=== PATIENT | female | born 1995 | race Hispanic/Latino ===

== ENCOUNTER → 2017-11-12 | Outpatient (CLI) | payer OTHER ==
[~2017-11-12] MED LIST: IBUP-2071 PO; TYL3 PO
== END ==
LOC: RAH 11:06
PROVIDERS: ATTEND Family Medicine
DX: R10.2 Pelvic and perineal pain (principal)
CPT/HCPCS: 76856

== ENCOUNTER 2017-11-20 09:26 | Day surgery (SDC) | payer OTHER ==
[2017-11-19 13:36] VITALS: BP 114/67
[2017-11-19 13:36] LABS: BASOPHILS % (AUTO) 0.7 % (0.0-5.0); EOSINOPHILS % (AUTO) 1.3 % (0.0-8.0); HEMATOCRIT 38.6 % (36-48); LYMPHOCYTES % (AUTO) 34.3 % (21.0-51.0); MEAN CORPUSCULAR HEMOGLOBIN 31.3 pg (27.0-33.0); MEAN CORPUSCULAR HGB CONC 36.1 g/dL (32.0-36.0); MEAN CORPUSCULAR VOLUME 86.6 fL (80-100); MONOCYTES % (AUTO) 6.9 % (3.0-13.0); NEUTROPHILS % (AUTO) 56.8 % (40.0-77.0); PLATELET COUNT (AUTO) 214 K/uL (130-400); RED BLOOD CELL COUNT(AUTO) 4.45 MIL/uL (4.00-5.50); RED CELL DISTRIBUTION WIDTH 12.3 % (11.0-15.5); WHITE BLOOD COUNT (AUTO) 4.7 K/uL (4.8-10.8)
[2017-11-20] VITALS (18 sets, daily range): BP systolic 96–114; BP diastolic 52–71
[~2017-11-20] VITALS: Ht 167.6 cm; Wt 56.0 kg
[~2017-11-20 09:26] MED LIST changes: +BUPIVACAINE/PF 0.25% 30ML VIAL IJ ONE; -IBUP-2071 PO; -TYL3 PO
[2017-11-20] MEDS ORDERED: LACTATED RINGERS 1000ML 1,000 ML IV ONE (10:44)
[2017-11-20] MEDS ORDERED: CALDOLOR 800MG+NS 250ML 250 ML IV ONE (10:53)
[2017-11-20] MEDS ORDERED: TYL3 PO (11:02)
[2017-11-20] MEDS: CEFAZOLIN SODIUM 1 GM VIAL ONE ×2 (11:03→12:45)
[2017-11-20] MEDS ORDERED: MIDAZOLAM HCL 1 MG/ML 2ML VIAL ONE ×2 (12:42→12:43)
[2017-11-20] MEDS ORDERED: GLYCOPYRROLATE 0.2 MG/ML 5 ML VIAL ONE (12:43)
[2017-11-20] MEDS ORDERED: FENTANYL CITRATE PF 50 MCG/1 ML 2ML VIAL ONE ×2 (12:43→12:53)
[2017-11-20] MEDS ORDERED: PROPOFOL 10 MG/ML 20ML VIAL IV ONE (12:43)
[2017-11-20] MEDS ORDERED: LIDOCAINE PF 2% 5ML ABBOJECT ONE (12:43)
[2017-11-20] MEDS ORDERED: DEXAMETHASONE SOD PHOSPHATE 10MG/ML 1ML VIAL ONE (12:43)
[2017-11-20] MEDS ORDERED: OCTYL 2-CYANOACRYLATE 1 EACH TP ONE (14:24)
[2017-11-20] MEDS ORDERED: MEPERIDINE-PF 25 MG/ML SYG ONE (14:56)
[2017-11-20] MEDS ORDERED: ONDANSETRON HCL MDV 20ML 2 MG/ML VIAL ONE (15:07)
== END 2017-11-20 17:30 | disposition home or self-care (01) ==
LOC: DAH 09:26
PROVIDERS: ATTEND Obstetrics & Gynecology
DX: N73.6 Female pelvic peritoneal adhesions (postinfective) (principal); G89.29 Other chronic pain; Z79.899 Other long term (current) drug therapy; Z98.890 Other specified postprocedural states
CPT/HCPCS: 36415; 58660; 84703; 85025; 86850; 86900; 86901; A4215; A4218; A4344; A4649 ×2; A4930; C1765; C1769 ×2; G0168; J0690; J1100; J1741; J2001; J2175; J2250 ×2; J2704; J3010 ×2; J3490 ×2; J7030; J7120 ×2

== ENCOUNTER 2018-02-06 10:55 | Emergency (ER) | payer OTHER ==
[~2018-02-06 10:55] MED LIST changes: -BUPIVACAINE/PF 0.25% 30ML VIAL IJ ONE; +TYL3 PO
[2018-02-06] MEDS ORDERED: KETOROLAC TROMETHAMINE 30MG/ML ONE (11:31)
[2018-02-06 11:33] LABS: BASOPHILS % (AUTO) 0.8 % (0.0-5.0); EOSINOPHILS % (AUTO) 1.1 % (0.0-8.0); HEMATOCRIT 39.8 % (36-48); LYMPHOCYTES % (AUTO) 33.2 % (21.0-51.0); MEAN CORPUSCULAR HGB CONC 35.8 g/dL (32.0-36.0); MEAN CORPUSCULAR VOLUME 86.6 fL (80-100); MONOCYTES % (AUTO) 7.4 % (3.0-13.0); NEUTROPHILS % (AUTO) 57.5 % (40.0-77.0); PLATELET COUNT (AUTO) 203 K/uL (130-400); RED CELL DISTRIBUTION WIDTH 12.4 % (11.0-15.5); WHITE BLOOD COUNT (AUTO) 5.8 K/uL (4.8-10.8)
[2018-02-06 11:44] LABS: CREATININE 0.7 mg/dL (0.5-1.5); POTASSIUM 3.8 mmol/L (3.5-5.1)
[2018-02-06 11:49] LABS: BILIRUBIN,TOTAL 0.3 mg/dL (0.2-1.0); TOTAL PROTEIN, SERUM 7.1 g/dL (6.0-8.3)
[2018-02-06 11:57] LABS: APPEARANCE,URINE Clear (CLEAR); BILIRUBIN,URINE Negative (NEGATIVE); COLOR,URINE Yellow (YELLOW); GLUCOSE, URINE (UA) Negative (NEGATIVE); KETONES,URINE Negative (NEGATIVE); LEUKOCYTE ESTERASE ,URINE Large (NEGATIVE); NITRATE,URINE Negative (NEGATIVE); OCCULT BLOOD,URINE Nonhemolyzed Trace (NEGATIVE); PH,URINE 7.5 (5.0-8.0); PROTEIN,URINE Negative (NEGATIVE)
[2018-02-06 12:02] LABS: HCG,QUAL RESULT NEGATIVE (NEGATIVE)
[2018-02-06 12:14] LABS: AMPHET/METH SCREEN,URINE NEGATIVE (NEGATIVE); BARBITURATE SCREEN, URINE NEGATIVE (NEGATIVE); BENZODIAZEPINES SCREEN,URINE NEGATIVE (NEGATIVE); CANNABINOID SCREEN,URINE NEGATIVE (NEGATIVE); COCAINE SCREEN,URINE NEGATIVE (NEGATIVE); OPIATE SCREEN,URINE NEGATIVE (NEGATIVE); PHENCYCLIDINE SCREEN,URINE NEGATIVE (NEGATIVE)
[2018-02-06 12:19] LABS: AMORPHOUS SEDIMENT,UR Few /LPF (None Seen); BACTERIA,URINE Moderate /HPF (None Seen); SQUAMOUS EPITHELIAL CELL,UR 0-2 /HPF (0-2)
[2018-02-06 12:20] LABS: RBC,URINE 0-1 /HPF (0-1)
[2018-02-06] MEDS ORDERED: CEFTRIAXONE SODIUM 1 GM ONE (12:50)
== END 2018-02-06 13:31 | disposition home or self-care (01) ==
LOC: EDH 10:55
DX: N30.00 Acute cystitis without hematuria (principal); G43.909 Migraine, unspecified, not intractable, without status migrainosus
CPT/HCPCS: 36415; 76830; 80053; 80305; 81001; 81025; 85025; 87088; 87486; 87797; 96374; 96375; 99285; J0696; J1885

== ENCOUNTER → 2018-06-04 | Outpatient (CLI) | payer OTHER ==
[2018-06-04 12:39] LABS: BASOPHILS % (AUTO) 0.8 % (0.0-5.0); EOSINOPHILS % (AUTO) 0.7 % (0.0-8.0); HEMATOCRIT 39.9 % (36-48); LYMPHOCYTES % (AUTO) 36.3 % (21.0-51.0); MEAN CORPUSCULAR HEMOGLOBIN 30.4 pg (27.0-33.0); MEAN CORPUSCULAR HGB CONC 34.8 g/dL (32.0-36.0); MEAN CORPUSCULAR VOLUME 87.4 fL (80-100); MONOCYTES % (AUTO) 6.3 % (3.0-13.0); NEUTROPHILS % (AUTO) 55.9 % (40.0-77.0); PLATELET COUNT (AUTO) 213 K/uL (130-400); RED BLOOD CELL COUNT(AUTO) 4.57 MIL/uL (4.00-5.50); RED CELL DISTRIBUTION WIDTH 12.1 % (11.0-15.5); WHITE BLOOD COUNT (AUTO) 4.5 K/uL (4.8-10.8)
[2018-06-04 13:00] LABS: ALBUMIN 4.4 g/dL (3.5-5.0); BILIRUBIN,TOTAL 0.5 mg/dL (0.2-1.0); CREATININE 0.8 mg/dL (0.5-1.5); POTASSIUM 5.4 mmol/L (3.5-5.1); THYROID STIMULATING HORMONE 2.12 uIU/mL (0.36-3.74); TOTAL PROTEIN, SERUM 7.8 g/dL (6.0-8.3)
== END | disposition home or self-care (01) ==
LOC: LAB 11:35
PROVIDERS: ATTEND Family Medicine
DX: I10 Essential (primary) hypertension (principal); R07.9 Chest pain, unspecified
CPT/HCPCS: 36415; 80053; 80061; 84443; 85025

== ENCOUNTER 2018-07-03 07:08 | Emergency (ER) | payer OTHER ==
[2018-07-03] MEDS ORDERED: PEN G BENZ/PEN G PROCAINE 1,200,000 UNIT/2 ML ML IM ONE (08:50)
== END 2018-07-03 09:07 | disposition home or self-care (01) ==
LOC: EDH 07:08
DX: J02.9 Acute pharyngitis, unspecified (principal); G43.909 Migraine, unspecified, not intractable, without status migrainosus; Z79.3 Long term (current) use of hormonal contraceptives; Z98.890 Other specified postprocedural states
CPT/HCPCS: 87880; 96372; 99283; J0558

== ENCOUNTER 2018-08-12 22:01 | Emergency (ER) | payer OTHER ==
[2018-08-12 22:31] LABS: BASOPHILS % (AUTO) 0.6 % (0.0-5.0); HEMATOCRIT 38.4 % (36-48); LYMPHOCYTES % (AUTO) 34.9 % (21.0-51.0); MEAN CORPUSCULAR HEMOGLOBIN 29.4 pg (27.0-33.0); MEAN CORPUSCULAR HGB CONC 33.9 g/dL (32.0-36.0); MEAN CORPUSCULAR VOLUME 86.7 fL (80-100); MONOCYTES % (AUTO) 7.5 % (3.0-13.0); NUCLEATED RED BLOOD CELLS 0.1 % (0.0-0.19); PLATELET COUNT (AUTO) 158 K/uL (130-400); RED BLOOD CELL COUNT(AUTO) 4.42 MIL/uL (4.00-5.50); RED CELL DISTRIBUTION WIDTH 11.9 % (11.0-15.5)
[2018-08-12 22:32] LABS: APPEARANCE,URINE Cloudy (CLEAR); BILIRUBIN,URINE Negative (NEGATIVE); COLOR,URINE Yellow (YELLOW); GLUCOSE, URINE (UA) Negative (NEGATIVE); KETONES,URINE Negative (NEGATIVE); LEUKOCYTE ESTERASE ,URINE Trace (NEGATIVE); NITRATE,URINE Negative (NEGATIVE); OCCULT BLOOD,URINE Negative (NEGATIVE); PH,URINE 7.5 (5.0-8.0); PROTEIN,URINE Negative (NEGATIVE)
[2018-08-12 22:38] LABS: HCG,QUAL RESULT NEGATIVE (NEGATIVE)
[2018-08-12 22:42] LABS: CREATININE 0.6 mg/dL (0.5-1.5); POTASSIUM 3.7 mmol/L (3.5-5.1)
[2018-08-12 22:47] LABS: ALBUMIN 3.6 g/dL (3.5-5.0); BILIRUBIN,TOTAL 0.2 mg/dL (0.2-1.0); TOTAL PROTEIN, SERUM 6.6 g/dL (6.0-8.3)
[2018-08-12 22:47] LABS: BACTERIA,URINE Rare /HPF (None Seen); MUCUS,URINE Few LPF (None Seen); RBC,URINE None Seen /HPF (0-1); SQUAMOUS EPITHELIAL CELL,UR Moderate /HPF (0-2); WBC,URINE 0-1 /HPF (0-1)
[2018-08-12] MEDS ORDERED: KETOROLAC TROMETHAMINE 30MG/ML ONE (22:55)
[2018-08-13] MEDS ORDERED: TRAMADOL HCL 50 MG TABLET ONE (00:56)
== END 2018-08-13 01:27 | disposition home or self-care (01) ==
LOC: EDH 22:01
DX: N83.291 Other ovarian cyst, right side (principal); R10.2 Pelvic and perineal pain
CPT/HCPCS: 36415; 76830; 80053; 81001; 81025; 85025; 96374; 99284; J1885

== ENCOUNTER 2018-08-13 12:32 | Emergency (ER) | payer OTHER ==
[2018-08-13 14:32] LABS: APPEARANCE,URINE Cloudy (CLEAR); BILIRUBIN,URINE Negative (NEGATIVE); COLOR,URINE Yellow (YELLOW); GLUCOSE, URINE (UA) Negative (NEGATIVE); KETONES,URINE Negative (NEGATIVE); LEUKOCYTE ESTERASE ,URINE Negative (NEGATIVE); NITRATE,URINE Negative (NEGATIVE); OCCULT BLOOD,URINE Negative (NEGATIVE); PROTEIN,URINE Negative (NEGATIVE)
[2018-08-13 14:35] LABS: HCG,QUAL RESULT NEGATIVE (NEGATIVE)
[2018-08-13 14:46] LABS: BACTERIA,URINE Few /HPF (None Seen); MUCUS,URINE Moderate LPF (None Seen); RBC,URINE 0-1 /HPF (0-1); WBC,URINE 0-1 /HPF (0-1)
[2018-08-13 14:48] LABS: BASOPHILS % (AUTO) 0.4 % (0.0-5.0); EOSINOPHILS % (AUTO) 0.8 % (0.0-8.0); HEMATOCRIT 36.6 % (36-48); LYMPHOCYTES % (AUTO) 23.4 % (21.0-51.0); MEAN CORPUSCULAR HEMOGLOBIN 30.3 pg (27.0-33.0); MEAN CORPUSCULAR HGB CONC 34.8 g/dL (32.0-36.0); MEAN CORPUSCULAR VOLUME 87.1 fL (80-100); MONOCYTES % (AUTO) 7.6 % (3.0-13.0); NEUTROPHILS % (AUTO) 67.8 % (40.0-77.0); NUCLEATED RED BLOOD CELLS 0.1 % (0.0-0.19); PLATELET COUNT (AUTO) 189 K/uL (130-400); RED CELL DISTRIBUTION WIDTH 11.7 % (11.0-15.5); WHITE BLOOD COUNT (AUTO) 6.9 K/uL (4.8-10.8)
[2018-08-13] MEDS ORDERED: 0.9% SODIUM CHLORIDE 1000 ML IV BAG IV ONE (14:53)
[2018-08-13] MEDS ORDERED: ONDANSETRON HCL 4 MG/2 ML VIAL IVP ONE (14:53)
[2018-08-13] MEDS ORDERED: KETOROLAC TROMETHAMINE 30MG/ML IV ONE (14:53)
[2018-08-13 14:56] LABS: CREATININE 0.7 mg/dL (0.5-1.5); POTASSIUM 3.8 mmol/L (3.5-5.1)
[2018-08-19] MEDS ORDERED: TRAM50TA4 PO (10:04)
== END 2018-08-13 15:31 | disposition home or self-care (01) ==
LOC: EDH 12:32
DX: N83.299 Other ovarian cyst, unspecified side (principal); Z98.890 Other specified postprocedural states
CPT/HCPCS: 36415; 80048; 81025; 85025; 96374; 96375; 99283; J1885; J2405; J7030

== ENCOUNTER 2018-08-20 06:00 | Day surgery (SDC) | payer OTHER ==
[2018-08-19 09:53] VITALS: BP 95/62
[2018-08-19 09:58] LABS: BASOPHILS % (AUTO) 0.7 % (0.0-5.0); EOSINOPHILS % (AUTO) 0.9 % (0.0-8.0); HEMATOCRIT 40.3 % (36-48); LYMPHOCYTES % (AUTO) 31.8 % (21.0-51.0); MEAN CORPUSCULAR HEMOGLOBIN 30.2 pg (27.0-33.0); MEAN CORPUSCULAR HGB CONC 34.7 g/dL (32.0-36.0); MEAN CORPUSCULAR VOLUME 86.8 fL (80-100); MONOCYTES % (AUTO) 11.8 % (3.0-13.0); NEUTROPHILS % (AUTO) 54.8 % (40.0-77.0); PLATELET COUNT (AUTO) 171 K/uL (130-400); RED BLOOD CELL COUNT(AUTO) 4.64 MIL/uL (4.00-5.50); RED CELL DISTRIBUTION WIDTH 12.1 % (11.0-15.5); WHITE BLOOD COUNT (AUTO) 3.6 K/uL (4.8-10.8)
[2018-08-20] VITALS (14 sets, daily range): BP systolic 96–109; BP diastolic 46–65
[~2018-08-20] VITALS: Ht 170.2 cm; Wt 57.8 kg
[~2018-08-20 06:00] MED LIST changes: +CALDOLOR 800MG+NS 250ML 250 ML IV SCH; +CEFAZOLIN SODIUM 1 GM VIAL IVP SCH; +LACTATED RINGERS 1000ML 1,000 ML IV SCH; +TRAM50TA4 PO
[2018-08-20] MEDS ORDERED: CALDOLOR 800MG+NS 250ML 250 ML IV ONE (06:37)
[2018-08-20] MEDS ORDERED: ONDANSETRON HCL 4 MG/2 ML VIAL ONE (07:15)
[2018-08-20] MEDS ORDERED: DEXAMETHASONE SOD PHOSPHATE 10MG/ML 1ML VIAL ONE (07:15)
[2018-08-20] MEDS ORDERED: LIDOCAINE PF 2% 5ML ABBOJECT ONE (07:15)
[2018-08-20] MEDS ORDERED: GLYCOPYRROLATE 1 MG/5 ML SYRINGE ONE (07:16)
[2018-08-20] MEDS ORDERED: NEOSTIGMINE 5MG/5ML SYR IV ONE (07:16)
[2018-08-20] MEDS ORDERED: FENTANYL CITRATE PF 50 MCG/1 ML 2ML VIAL ONE (07:16)
[2018-08-20] MEDS ORDERED: PROPOFOL 10 MG/ML 20ML VIAL IV ONE (07:16)
[2018-08-20] MEDS ORDERED: MIDAZOLAM HCL 1 MG/ML 2ML VIAL ONE (07:17)
[2018-08-20] MEDS ORDERED: ROCURONIUM 10MG/1ML SYR 10 MG/ML ML ONE (07:17)
[2018-08-20] MEDS ORDERED: METHYLENE BLUE 10 MG/ML AMP ONE (07:30)
[2018-08-20] MEDS ORDERED: BUPIVACAINE/PF 0.25% 30ML VIAL IJ ONE (07:30)
[2018-08-20] MEDS ORDERED: KETOROLAC TROMETHAMINE 30MG/ML ONE (09:43)
[2018-08-20] MEDS ORDERED: MEPERIDINE-PF 25 MG/ML SYG ONE (09:45)
--- NOTE | 2018-08-20 11:15 | NUR ---
ATTEMPTED TO URINATE STATES NOT ABLE TO ---INSTRUCTED TO DRINK PLENTY OF FLUIDS AND IF NOT WITHIN 6-8 HRS ,CONTACT MD OR COME TO ER,MOM AND PT VERBALIZE UNDERSTANDING
== END 2018-08-20 11:30 | disposition home or self-care (01) ==
LOC: DAH 06:00
PROVIDERS: ATTEND Obstetrics & Gynecology
DX: N73.6 Female pelvic peritoneal adhesions (postinfective) (principal); N80.3 Endometriosis of pelvic peritoneum; Z79.899 Other long term (current) drug therapy
CPT/HCPCS: 36415; 58350; 58660; 84702; 85025; 86850; 86900; 86901; A4351; A4649; C1769 ×2; J0690; J1100; J1885; J2001; J2175; J2250; J2405; J2704; J2710; J3010; J3490 ×2; J7030; J7120; Q9968; J1741

== ENCOUNTER → 2018-10-05 | Outpatient (CLI) | payer OTHER ==
[~2018-10-05] MED LIST changes: -CALDOLOR 800MG+NS 250ML 250 ML IV SCH; -CEFAZOLIN SODIUM 1 GM VIAL IVP SCH; -LACTATED RINGERS 1000ML 1,000 ML IV SCH
== END | disposition home or self-care (01) ==
LOC: LAB 15:04
PROVIDERS: ATTEND Obstetrics & Gynecology
DX: Z32.01 Encounter for pregnancy test, result positive (principal)
CPT/HCPCS: 36415; 84702

== ENCOUNTER → 2018-10-06 | Outpatient (CLI) | payer OTHER | END | disposition home or self-care (01) | LOC: RAH 14:07 | PROVIDERS: ATTEND Obstetrics & Gynecology | DX: Z32.01 Encounter for pregnancy test, result positive (principal) | CPT/HCPCS: 76801 ==

== ENCOUNTER → 2018-10-20 | Outpatient (CLI) | payer OTHER | END | disposition home or self-care (01) | LOC: RAH 09:04 | PROVIDERS: ATTEND Obstetrics & Gynecology | DX: Z34.01 Encounter for supervision of normal first pregnancy, first trimester (principal) | CPT/HCPCS: 76801 ==

== ENCOUNTER 2019-01-05 07:40 | Observation (INO) | payer OTHER, MEDICAID ==
[~2019-01-05] VITALS: Ht 167.6 cm; Wt 62.1 kg
[2019-01-05 08:23] LABS: APPEARANCE,URINE Clear (CLEAR); BILIRUBIN,URINE Negative (NEGATIVE); COLOR,URINE Yellow (YELLOW); GLUCOSE, URINE (UA) Negative (NEGATIVE); KETONES,URINE Negative (NEGATIVE); LEUKOCYTE ESTERASE ,URINE Negative (NEGATIVE); NITRATE,URINE Negative (NEGATIVE); OCCULT BLOOD,URINE Negative (NEGATIVE); PH,URINE >=9.0 (5.0-8.0); PROTEIN,URINE Negative (NEGATIVE)
[2019-01-05 09:04] LABS: BACTERIA,URINE Rare /HPF (None Seen); SQUAMOUS EPITHELIAL CELL,UR Moderate /HPF (0-2); WBC,URINE 0-1 /HPF (0-1)
== END 2019-01-05 09:35 | disposition home or self-care (01) ==
LOC: LDH 07:40
PROVIDERS: ADMIT Obstetrics & Gynecology; ATTEND Obstetrics & Gynecology
DX: O26.892 Other specified pregnancy related conditions, second trimester (principal); R10.32 Left lower quadrant pain; O99.612 Diseases of the digestive system complicating pregnancy, second trimester; K59.00 Constipation, unspecified; Z3A.18 18 weeks gestation of pregnancy
CPT/HCPCS: 59025; 76805; 81001; G0378 ×3

== ENCOUNTER → 2019-03-09 | Outpatient (CLI) | payer OTHER, MEDICAID | END | disposition home or self-care (01) | LOC: RAH 11:02 | PROVIDERS: ATTEND Obstetrics & Gynecology | DX: Z34.03 Encounter for supervision of normal first pregnancy, third trimester (principal); Z3A.29 29 weeks gestation of pregnancy | CPT/HCPCS: 76805 ==

== ENCOUNTER 2019-03-31 17:11 | Observation (INO) | payer OTHER, MEDICAID ==
[2019-03-31 17:52] LABS: APPEARANCE,URINE Cloudy (CLEAR); BILIRUBIN,URINE Negative (NEGATIVE); COLOR,URINE Yellow (YELLOW); GLUCOSE, URINE (UA) Negative (NEGATIVE); KETONES,URINE Negative (NEGATIVE); LEUKOCYTE ESTERASE ,URINE Moderate (NEGATIVE); NITRATE,URINE Negative (NEGATIVE); OCCULT BLOOD,URINE Negative (NEGATIVE); PH,URINE 6.5 (5.0-8.0); PROTEIN,URINE Negative (NEGATIVE)
[2019-03-31 18:08] LABS: BACTERIA,URINE Few /HPF (None Seen); RBC,URINE 0-1 /HPF (0-1)
[2019-03-31] MEDS ORDERED: LACTATED RINGERS 1000ML 1,000 ML IV SCH (19:15)
[2019-03-31] MEDS ORDERED: TERBUTALINE SULFATE VIAL 1MG/ML SQ PRN (19:15)
== END 2019-03-31 19:45 | disposition home or self-care (01) ==
LOC: LDH 17:11
PROVIDERS: ADMIT Obstetrics & Gynecology; ATTEND Obstetrics & Gynecology
DX: O26.893 Other specified pregnancy related conditions, third trimester (principal); R10.30 Lower abdominal pain, unspecified; Z3A.30 30 weeks gestation of pregnancy
CPT/HCPCS: 81001; G0378 ×3; J7120; 96360

== ENCOUNTER 2019-05-07 13:44 | Observation (INO) | payer OTHER, MEDICAID ==
[2019-05-07 14:30] LABS: BILIRUBIN,URINE NEGATIVE (NEGATIVE); COLOR,URINE YELLOW (YELLOW); GLUCOSE, URINE (UA) NEGATIVE (NEGATIVE); KETONES,URINE NEGATIVE (NEGATIVE); LEUKOCYTE ESTERASE ,URINE TRACE (NEGATIVE); NITRATE,URINE NEGATIVE (NEGATIVE); OCCULT BLOOD,URINE NEGATIVE (NEGATIVE); PH,URINE 6.5 (5.0-8.0); PROTEIN,URINE NEGATIVE (NEGATIVE)
[2019-05-07 14:37] LABS: APPEARANCE,URINE CLEAR (CLEAR); BACTERIA,URINE Few /HPF (None Seen); RBC,URINE None Seen /HPF (0-1); WBC,URINE 0-1 /HPF (0-1)
== END 2019-05-07 15:10 | disposition home or self-care (01) ==
LOC: EDH 13:44 → LDH 13:45
PROVIDERS: ADMIT Obstetrics & Gynecology; ATTEND Obstetrics & Gynecology
DX: O60.03 Preterm labor without delivery, third trimester (principal); Z3A.36 36 weeks gestation of pregnancy
CPT/HCPCS: 81001; 99284; G0378

== ENCOUNTER 2019-05-18 16:59 | Inpatient (IN) | payer OTHER, MEDICAID ==
[~2019-05-18] VITALS: Ht 167.6 cm; Wt 78.5 kg
[2019-05-18 17:58] LABS: HEMATOCRIT 34.5 % (36-48); MEAN CORPUSCULAR HEMOGLOBIN 29.5 pg (27.0-33.0); MEAN CORPUSCULAR HGB CONC 33.7 g/dL (32.0-36.0); MEAN CORPUSCULAR VOLUME 87.6 fL (80-100); NUCLEATED RED BLOOD CELLS 0.1 % (0.0-0.19); PLATELET COUNT (AUTO) 172 K/uL (130-400); RED BLOOD CELL COUNT(AUTO) 3.94 MIL/uL (4.00-5.50); RED CELL DISTRIBUTION WIDTH 13.9 % (11.0-15.5); WHITE BLOOD COUNT (AUTO) 11.8 K/uL (4.8-10.8)
[2019-05-18 18:03] LABS: APPEARANCE,URINE Clear (CLEAR); BILIRUBIN,URINE Negative (NEGATIVE); COLOR,URINE Dark Yellow (YELLOW); GLUCOSE, URINE (UA) 500 mg/dL (NEGATIVE); KETONES,URINE Trace mg/dL (NEGATIVE); LEUKOCYTE ESTERASE ,URINE Negative (NEGATIVE); NITRATE,URINE Negative (NEGATIVE); OCCULT BLOOD,URINE Small (NEGATIVE); PROTEIN,URINE Trace mg/dL (NEGATIVE)
[2019-05-18 18:08] LABS: BACTERIA,URINE Moderate /HPF (None Seen)
[2019-05-18 18:09] LABS: MUCUS,URINE Moderate LPF (None Seen)
[2019-05-18] MEDS ORDERED: ROPIVACAINE 0.2% 100ML VIAL 100 ML EP SCH (18:15)
[2019-05-18] MEDS ORDERED: NALOXONE HCL 0.4 MG/1 ML ML IV PRN (18:15)
[2019-05-18] MEDS ORDERED: EPHEDRINE SULFATE 50 MG/ML AMPULE IVP PRN (18:15)
[2019-05-18] MEDS ORDERED: LACTATED RINGERS 500 ML 500 ML IV PRN (18:15)
[2019-05-18] MEDS ORDERED: OXYTOCIN-LR 20 UNITS/1000 ML 1,000 ML IV SCH (18:30)
[2019-05-18] MEDS: LACTATED RINGERS 1000ML 1,000 ML IV PRN (20:10)
[2019-05-18 21:57] VITALS: BP 119/59
[2019-05-18] MEDS ORDERED: BUTORPHANOL TARTRATE 2 MG/ML IVP PRN (22:15)
[2019-05-19] MEDS: LACTATED RINGERS 1000ML 1,000 ML IV PRN (07:19)
[2019-05-19] MEDS ORDERED: FENTANYL CITRATE PF 50 MCG/1 ML 2ML VIAL ONE (09:50)
[2019-05-19] MEDS ORDERED: LIDOCAINE HCL 2% 20ML ONE (14:21)
[2019-05-19] MEDS ORDERED: LIDOCAINE HCL 1% 20 ML VIAL ONE (14:22)
[2019-05-19] MEDS ORDERED: METHYLERGONOVINE MALEATE 0.2 MG/1 ML ML ONE (14:38)
[2019-05-19] MEDS ORDERED: MISOPROSTOL 200 MCG TABLET ONE (14:47)
[2019-05-19] MEDS ORDERED: LANOLIN 30GM OINTMENT TP PRN (15:15)
[2019-05-19] MEDS ORDERED: BENZOCAINE/LANOLIN/ALOE VERA 60 ML AEROSOL TP PRN (15:15)
[2019-05-19] MEDS ORDERED: WITCH HAZEL 1 PAD TP PRN (15:15)
[2019-05-19] MEDS ORDERED: ACETAMINOPHEN 325 MG TAB PO PRN (15:15)
[2019-05-19] MEDS ORDERED: DIPH,PERTUSS(ACELL),TET VAC/PF 0.5 ML VIAL IM PRN (15:15)
[2019-05-19] MEDS ORDERED: ACETAMINOPHEN-CODEINE 300/30MG TAB PO PRN (15:15)
[2019-05-19] MEDS ORDERED: MEASLES/MUMPS/RUBELLA VACCINE, LIVE 0.5 ML/VIAL SQ PRN (15:15)
[2019-05-19 17:05] VITALS: BP 133/82
[2019-05-19] MEDS ORDERED: PNV1TABL17 PO (17:15)
--- NOTE | 2019-05-19 17:31 | NUR ---
ACTIVITY PT AMBULATED TO BATHROOM, SAT ON TOILET, BEGAN TO LOOK PALE AND FEEL FAINT, GAVE 1 APPLES JUICE, PT DRANK IT COMPLETELY AND WAS ABLE TO VOID 1000mL OF CLEAR RED-TINGED URINE, DID OWN PALLAVI CARE; WAS ABLE TO AMBULATE BACK TO BED WITH NO DIZZINESS NOR FATIGUE; POC DISCUSSED, CALL-LIGHT WITHIN REACH, PT AND FAMILY VERBALIZED UNDERSTANDING
[2019-05-19] MEDS: IBUPROFEN 600 MG TABLET PO PRN (18:28)
[2019-05-19] MEDS ORDERED: FLU VACC QS2019-20 36MOS UP/PF 60 MCG/0.5 ML ML IM ONE (18:30)
[2019-05-19 19:10] VITALS: BP 114/62
[2019-05-19] MEDS: DOCUSATE SODIUM 100 MG CAP PO SCH (19:37)
[2019-05-19 23:17] VITALS: BP 107/70
[2019-05-20] MEDS: LACTATED RINGERS 1000ML 1,000 ML IV PRN (00:24)
[2019-05-20 03:07] VITALS: BP 102/68
[2019-05-20] MEDS: IBUPROFEN 600 MG TABLET PO PRN ×2 (03:07→09:07)
[2019-05-20 07:14] LABS: HEPATITIS Bs ANTIGEN SCREEN P Negative (Negative)
[2019-05-20 07:29] VITALS: BP 102/62
[2019-05-20] MEDS: DOCUSATE SODIUM 100 MG CAP PO SCH (09:06)
[2019-05-20 11:04] VITALS: BP 97/54
--- NOTE | 2019-05-20 16:45 | NUR ---
DISCHARGE PT STABLE, NO PAIN, NO COMPLAINTS; PT LEFT UNIT, VIA WHEELCHAIR, WITH BABY IN ARMS, ACCOMPANIED BY [facility] [employer] AND FAMILY MEMBERS CARRYING ALL PERSONAL BELONGINGS, INSTRUCTIONS, AND PRESCRIPTION; PT LEFT FACILITY IN PERSONAL VEHICLE
== END 2019-05-20 16:45 | disposition home or self-care (01) | DRG 807 ==
LOC: LDH 16:59 → WSH 05-19 17:05
PROVIDERS: ADMIT Obstetrics & Gynecology; ATTEND Obstetrics & Gynecology
PROC: 10E0XZZ Delivery of Products of Conception, External Approach (ICD-10-PCS; principal; 2019-05-19)
PROC: 0KQM0ZZ Repair Perineum Muscle, Open Approach (ICD-10-PCS; 2019-05-19)
PROC: 3E0R3BZ Introduction of Anesthetic Agent into Spinal Canal, Percutaneous Approach (ICD-10-PCS; 2019-05-19)
PROC: 00HU33Z Insertion of Infusion Device into Spinal Canal, Percutaneous Approach (ICD-10-PCS; 2019-05-19)
PROC: 10907ZC Drainage of Amniotic Fluid, Therapeutic from Products of Conception, Via Natural or Artificial Opening (ICD-10-PCS; 2019-05-19)
PROC: 3E0234Z Introduction of Serum, Toxoid and Vaccine into Muscle, Percutaneous Approach (ICD-10-PCS; 2019-05-19)
PROC: 3E02340 Introduction of Influenza Vaccine into Muscle, Percutaneous Approach (ICD-10-PCS; 2019-05-19)
DX: O69.81X0 Labor and delivery complicated by cord around neck, without compression, not applicable or unspecified (principal); Z37.0 Single live birth; O70.1 Second degree perineal laceration during delivery; O62.2 Other uterine inertia; Z3A.37 37 weeks gestation of pregnancy; Z23 Encounter for immunization
CPT/HCPCS: 36415; 81001; 85027; 86592; 86850; 86900; 86901; 87340; 90715; A4314; G0008; G0378; J0595; J2210; J2590; J2795; J3010; J3490; J7120

== ENCOUNTER → 2019-06-14 | Outpatient (CLI) | payer OTHER, MEDICAID ==
[~2019-06-14] MED LIST changes: +PNV1TABL17 PO; -TRAM50TA4 PO; -TYL3 PO
== END | disposition home or self-care (01) ==
LOC: RAH 12:33
PROVIDERS: ATTEND Family Medicine
DX: D12.4 Benign neoplasm of descending colon (principal); M95.2 Other acquired deformity of head
CPT/HCPCS: 70450

== ENCOUNTER → 2020-05-01 | Outpatient (CLI) | payer OTHER, MEDICAID | END | disposition home or self-care (01) | LOC: RAH 13:24 | PROVIDERS: ATTEND Obstetrics & Gynecology | DX: Z34.01 Encounter for supervision of normal first pregnancy, first trimester (principal); Z3A.01 Less than 8 weeks gestation of pregnancy | CPT/HCPCS: 76801 ==

== ENCOUNTER 2020-06-22 21:05 | Emergency (ER) | payer MEDICAID, OTHER ==
[2020-06-22 21:36] LABS: APPEARANCE,URINE Cloudy (CLEAR); BILIRUBIN,URINE Negative (NEGATIVE); COLOR,URINE Dark Yellow (YELLOW); GLUCOSE, URINE (UA) Negative (NEGATIVE); KETONES,URINE Trace mg/dL (NEGATIVE); LEUKOCYTE ESTERASE ,URINE Moderate (NEGATIVE); NITRATE,URINE Negative (NEGATIVE); OCCULT BLOOD,URINE Negative (NEGATIVE); PROTEIN,URINE Negative (NEGATIVE)
[2020-06-22 21:48] LABS: CREATININE 0.5 mg/dL (0.5-1.5); POTASSIUM 3.5 mmol/L (3.5-5.1)
[2020-06-22 21:52] LABS: MUCUS,URINE Moderate LPF (None Seen); SQUAMOUS EPITHELIAL CELL,UR 30-50 /HPF (0-2)
[2020-06-22 21:55] LABS: BACTERIA,URINE Moderate /HPF (None Seen)
[2020-06-22 21:57] LABS: RBC,URINE 0-1 /HPF (0-1)
[2020-06-22 22:03] LABS: BASOPHILS % (AUTO) 0.6 % (0.0-5.0); EOSINOPHILS % (AUTO) 1.4 % (0.0-8.0); HEMATOCRIT 33.5 % (36-48); LYMPHOCYTES % (AUTO) 42.1 % (21.0-51.0); MEAN CORPUSCULAR HEMOGLOBIN 29.6 pg (27.0-33.0); MEAN CORPUSCULAR HGB CONC 34.9 g/dL (32.0-36.0); MEAN CORPUSCULAR VOLUME 84.8 fL (79-99); MONOCYTES % (AUTO) 5.4 % (3.0-13.0); NEUTROPHILS % (AUTO) 48.7 % (40.0-77.0); PLATELET COUNT (AUTO) 124 K/uL (130-400); RED BLOOD CELL COUNT(AUTO) 3.95 MIL/uL (4.00-5.50); RED CELL DISTRIBUTION WIDTH 12.3 % (11.0-15.5); WHITE BLOOD COUNT (AUTO) 6.3 K/uL (4.8-10.8)
[2020-06-22] MEDS ORDERED: SODIUM CHLORIDE 0.9% 1000ML 1,000 ML IV ONE (22:04)
[2020-06-22] MEDS ORDERED: CEFTRIAXONE SODIUM 1 GM ONE (22:04)
[2020-06-22 22:14] LABS: ALBUMIN 3.2 g/dL (3.5-5.0); BILIRUBIN,TOTAL 0.3 mg/dL (0.2-1.0); CRP QUANTITATIVE 29.7 mg/L (0.00-9.0); TOTAL PROTEIN, SERUM 7.5 g/dL (6.0-8.3)
== END 2020-06-22 22:44 | disposition home or self-care (01) ==
LOC: EDH 21:05
DX: O26.891 Other specified pregnancy related conditions, first trimester (principal); R10.31 Right lower quadrant pain
CPT/HCPCS: 36415; 76705; 80053; 81001; 84702; 85025; 86140; 87088; 96361; 96374; 99284; J0696; J7030

== ENCOUNTER 2020-12-05 16:06 | Inpatient (IN) | payer MEDICAID ==
[~2020-12-05] VITALS: Ht 167.6 cm; Wt 80.3 kg
[2020-12-05 16:44] LABS: APPEARANCE,URINE Cloudy (CLEAR); BILIRUBIN,URINE Negative (NEGATIVE); COLOR,URINE Yellow (YELLOW); GLUCOSE, URINE (UA) Negative (NEGATIVE); KETONES,URINE Negative (NEGATIVE); LEUKOCYTE ESTERASE ,URINE Moderate (NEGATIVE); NITRATE,URINE Negative (NEGATIVE); OCCULT BLOOD,URINE Negative (NEGATIVE); PROTEIN,URINE Negative (NEGATIVE)
[2020-12-05 16:51] LABS: RBC,URINE 0-1 /HPF (0-1)
[2020-12-05 16:52] LABS: BACTERIA,URINE Few /HPF (None Seen); MUCUS,URINE Few LPF (None Seen); SQUAMOUS EPITHELIAL CELL,UR Moderate /HPF (0-2)
[2020-12-05] MEDS ORDERED: LACTATED RINGERS 500 ML 500 ML IV PRN (17:00)
[2020-12-05] MEDS ORDERED: ROPIVACAINE 0.2% 100ML VIAL 100 ML EP SCH (17:00)
[2020-12-05] MEDS ORDERED: EPHEDRINE SULFATE 50 MG/ML AMPULE IVP PRN (17:00)
[2020-12-05] MEDS ORDERED: BUTORPHANOL TARTRATE 2 MG/ML IVP PRN (17:00)
[2020-12-05] MEDS ORDERED: NALOXONE HCL 0.4 MG/1 ML ML IV PRN (17:00)
[2020-12-05 17:02] VITALS: BP 126/84
[2020-12-05] MEDS: LACTATED RINGERS 1000ML 1,000 ML IV PRN ×2 (17:13→20:58)
[2020-12-05 17:19] LABS: HEMATOCRIT 33.7 % (36-48); MEAN CORPUSCULAR HEMOGLOBIN 27.6 pg (27.0-33.0); MEAN CORPUSCULAR HGB CONC 32.3 g/dL (32.0-36.0); MEAN CORPUSCULAR VOLUME 85.3 fL (79-99); RED BLOOD CELL COUNT(AUTO) 3.95 MIL/uL (4.00-5.50); RED CELL DISTRIBUTION WIDTH 13.2 % (11.0-15.5); WHITE BLOOD COUNT (AUTO) 7.9 K/uL (4.8-10.8)
[2020-12-05] MEDS ORDERED: PREN1TAB26 PO (17:33)
[2020-12-06] MEDS: OXYTOCIN-LR 20 UNITS/1000 ML 1,000 ML IV SCH ×2 (04:49→17:00)
[2020-12-06] MEDS ORDERED: OXYTOCIN-LR 20 UNITS/1000 ML 1,000 ML IV SCH (05:00)
[2020-12-06] MEDS ORDERED: METHYLERGONOVINE MALEATE 0.2 MG/1 ML ML ONE (16:41)
[2020-12-06] MEDS ORDERED: MISOPROSTOL 200 MCG TABLET ONE (16:48)
[2020-12-06] MEDS ORDERED: WITCH HAZEL 1 PAD TP PRN (17:00)
[2020-12-06] MEDS ORDERED: ACETAMINOPHEN WITH CODEINE 1 TAB TAB PO PRN (17:00)
[2020-12-06] MEDS ORDERED: LANOLIN 30GM OINTMENT TP PRN (17:00)
[2020-12-06] MEDS ORDERED: ACETAMINOPHEN 325 MG TAB PO PRN (17:00)
[2020-12-06] MEDS ORDERED: BENZOCAINE/LANOLIN/ALOE VERA 60 ML AEROSOL TP PRN (17:00)
[2020-12-06 19:30] VITALS: BP 117/70
[2020-12-06] MEDS: IBUPROFEN 600 MG TABLET PO PRN (19:32)
[2020-12-06] MEDS: DOCUSATE SODIUM 100 MG CAP PO SCH (20:28)
[2020-12-06 22:23] VITALS: BP 117/67
[2020-12-06 23:31] VITALS: BP 93/53
[2020-12-07 03:40] VITALS: BP 114/60
[2020-12-07 07:11] VITALS: BP 96/60
[2020-12-07 07:16] LABS: HEPATITIS Bs ANTIGEN SCREEN P Negative (Negative)
[2020-12-07] MEDS ORDERED: DIPH,PERTUSS(ACELL),TET VAC/PF 0.5 ML VIAL IM SCH (08:45)
[2020-12-07] MEDS: DOCUSATE SODIUM 100 MG CAP PO SCH (08:52)
[2020-12-07] MEDS: IBUPROFEN 600 MG TABLET PO PRN (08:53)
[2020-12-07 11:03] VITALS: BP 105/58
[2020-12-07 16:30] VITALS: BP 104/62
== END 2020-12-07 18:05 | disposition home or self-care (01) | DRG 560 ==
LOC: EDH 16:06 → LDH 16:18 → OBSVTOIN 16:18 → LDH 16:42 → WSH 12-06 22:10
PROVIDERS: ADMIT Obstetrics & Gynecology; ATTEND Obstetrics & Gynecology
PROC: 10E0XZZ Delivery of Products of Conception, External Approach (ICD-10-PCS; principal; 2020-12-06)
PROC: 10907ZC Drainage of Amniotic Fluid, Therapeutic from Products of Conception, Via Natural or Artificial Opening (ICD-10-PCS; 2020-12-06)
PROC: 00HU33Z Insertion of Infusion Device into Spinal Canal, Percutaneous Approach (ICD-10-PCS; 2020-12-06)
PROC: 3E0R3BZ Introduction of Anesthetic Agent into Spinal Canal, Percutaneous Approach (ICD-10-PCS; 2020-12-06)
PROC: 3E0234Z Introduction of Serum, Toxoid and Vaccine into Muscle, Percutaneous Approach (ICD-10-PCS; 2020-12-07)
DX: O69.81X0 Labor and delivery complicated by cord around neck, without compression, not applicable or unspecified (principal); O62.2 Other uterine inertia; Z37.0 Single live birth; Z3A.38 38 weeks gestation of pregnancy; Z23 Encounter for immunization
CPT/HCPCS: 36415; 81001; 85027; 86592; 86850; 86900; 86901; 87088; 87340; 90715; A4314; G0378; J2210; J2590; J2795; J7120

== ENCOUNTER 2023-04-16 20:28 | Emergency (ER) | payer MEDICAID ==
[~2023-04-16] VITALS: Ht 167.6 cm; Wt 68.5 kg
[2023-04-16 21:00] VITALS: BP 118/75; PULSE 74; RESP 20
== END 2023-04-17 00:03 | disposition left against medical advice (07) ==
LOC: EDH 20:28
DX: R51.9 Headache, unspecified (principal); Z53.21 Procedure and treatment not carried out due to patient leaving prior to being seen by health care provider
CPT/HCPCS: 99281

== ENCOUNTER 2023-12-21 18:41 | Emergency (ER) | payer BC, MEDICAID ==
[~2023-12-21] VITALS: Ht 167.6 cm; Wt 70.3 kg
[2023-12-21] MEDS ORDERED: NAPR375T6 PO (21:27)
[2023-12-21 22:02] VITALS: BP 119/80; PULSE 74; RESP 18; O2SAT 98
== END 2023-12-21 22:07 | disposition home or self-care (01) ==
LOC: EDH 18:41
DX: N83.201 Unspecified ovarian cyst, right side (principal); Z90.710 Acquired absence of both cervix and uterus; Z98.890 Other specified postprocedural states
CPT/HCPCS: 76856

== ENCOUNTER 2024-10-19 22:28 | Emergency (ER) | payer BC ==
[~2024-10-19] VITALS: Ht 167.6 cm; Wt 69.9 kg
[~2024-10-19 22:28] MED LIST changes: +NAPR-1505 PO; -PNV1TABL17 PO
[2024-10-19 23:07] LABS: APPEARANCE,URINE CLEAR (CLEAR); BILIRUBIN,URINE NEGATIVE (NEGATIVE); COLOR,URINE LIGHT-YELLOW (YELLOW); GLUCOSE, URINE (UA) NEGATIVE (NEGATIVE); KETONES,URINE NEGATIVE (NEGATIVE); LEUKOCYTE ESTERASE ,URINE NEGATIVE Leu/uL (NEGATIVE); NITRATE,URINE NEGATIVE (NEGATIVE); OCCULT BLOOD,URINE NEGATIVE (NEGATIVE); PROTEIN,URINE NEGATIVE (NEGATIVE); UROBILINOGEN,URINE 0.2 mg/dL (0.2-1.0)
[2024-10-19 23:14] LABS: BASOPHILS # (AUTO) 0.04 K/uL (0.00-0.20); BASOPHILS % (AUTO) 0.5 % (0.0-5.0); EOSINOPHILS # (AUTO) 0.06 K/uL (0.00-0.70); EOSINOPHILS % (AUTO) 0.8 % (0.0-8.0); HEMATOCRIT 40.3 % (36-48); IMMATURE GRANULOCYTE ABSOLUTE 0.08 K/uL (0-1); LYMPHOCYTES # (AUTO) 1.2 K/uL (1.0-4.8); LYMPHOCYTES % (AUTO) 15.3 % (21.0-51.0); MEAN CORPUSCULAR HEMOGLOBIN 30.3 pg (27.0-33.0); MEAN CORPUSCULAR HGB CONC 34.5 g/dL (32.0-36.0); MONOCYTES # (AUTO) 0.6 K/uL (0.1-1.0); NEUTROPHILS % (AUTO) 75.4 % (40.0-77.0); PLATELET COUNT (AUTO) 225 K/uL (130-400); RED BLOOD CELL COUNT(AUTO) 4.58 MIL/uL (4.00-5.50); RED CELL DISTRIBUTION WIDTH 11.6 % (11.0-15.5); WHITE BLOOD COUNT (AUTO) 7.9 K/uL (4.8-10.8)
[2024-10-19 23:26] LABS: CREATININE 0.7 mg/dL (0.5-1.0); POTASSIUM 3.3 mmol/L (3.5-5.1)
[2024-10-19 23:26] LABS: ADD UA MICROSCOPIC NO
[2024-10-20 00:13] LABS: BILIRUBIN,DIRECT 0.1 mg/dL (0.0-0.3); BILIRUBIN,TOTAL 0.4 mg/dL (0.2-1.0); TOTAL PROTEIN, SERUM 7.8 g/dL (6.0-8.3)
--- NOTE | 2024-10-20 00:24 | ERN ---
General Chief Complaint: Abdominal Pain Stated Complaint: C/O LUQ PAIN WITH NAUSEA Time Seen by MD: 22:35 Time Seen by Midlevel: 22:35 Source: patient History of Present Illness Initial Comments 29-year-old female who presents to the emergency department due to abdominal pain onset today. Patient reports she took Tylenol prior to arrival. Reports nausea , cough, congestion but denies any vomiting, diarrhea or further associated symptoms. Patient reports her children are currently sick with influenza, she tested negative. Denies significant past medical history. Surgical history of hysterectomy. Allergies: Coded Allergies: No Known Drug Allergies (Unverified Allergy, Unknown, 09/04/16) Home Meds Active Scripts Naproxen (Naproxen) 375 Mg Tablet.dr, 375 MG PO BID PRN for PAIN LEVEL 6 TO 10 for 7 Days, #14 TAB Prov:LARISA ELIZABETH MD 12/21/23 Past Medical History Past Medical History: No Pertinent History Past Surgical History: Hysterectomy Surgical History Other: LAPAROSCOPY ROS Dictation Constitutional: Negative for fever,chills, and weight loss Eyes: Negative for injury, pain,redness, and discharge ENT: Negative for injury,pain or swelling Cardiovascular: Negative for chest pain, palpitations, and edema Respiratory: Negative for shortness of breath, cough, and wheezing, Abdomen/GI: Positive for abdominal pain, nausea Negative for vomiting, diarrhea, and constipation Back: Negative for injury and pain : Negative for painful urination, bleeding or discharge MS/Extremity: Negative for injury and deformity Skin: Negative for rash, and discoloration Neuro: Negative for headache, weakness, numbness, tingling, and seizure Psych: Negative for suicide ideation, homicidal ideation, and hallucinations Physical Exam Physical Exam Dictation General: awake, alert, no acute distress Head/Face: Normocephalic, atraumatic Eyes: PERRL, EOMI, normal conjunctiva ENT: oral cavity clear, oral mucosa moist Neck: Supple, normal range of motion Cardiovascular: RRR, normal S1/S2 Respiratory: CTAB, no respiratory distress, no rales or wheezes Abdomen: Soft, non-tender, non-distended, normal bowel sounds, no guarding or rebound. Skin: Warm, dry, normal turgor, no rash MS/Extremity: Pulses equal, no cyanosis, neurovascular intact, FROM Neuro: COAx4, GCS 15, no neurological deficits, normal gait Psych: Normal behavior, mood, and affect normal Results Laboratory and Microbiology Lab and Micro Result Laboratory Tests Test 10/19/24 22:33 10/19/24 23:08 Urine Color LIGHT-YELLOW (YELLOW) Urine Appearance CLEAR (CLEAR) Urine pH 6.0 (5.0-8.0) Urine Specific [place] 1.021 (1.001-1.031) Urine Protein NEGATIVE mg/dL (NEGATIVE) Urine Glucose (UA) NEGATIVE mg/dL (NEGATIVE) Urine Ketones NEGATIVE mg/dL (NEGATIVE) Urine Occult Blood NEGATIVE (NEGATIVE) Urine Nitrate NEGATIVE (NEGATIVE) Urine Bilirubin NEGATIVE mg/dL (NEGATIVE) Urine Urobilinogen 0.2 mg/dL (0.2-1.0) Urine Leukocyte Esterase NEGATIVE Calixto/uL White Blood Count 7.9 K/uL (4.8-10.8) Red Blood Count 4.58 MIL/uL (4.00-5.50) Hemoglobin 13.9 g/dL (12.0-16.0) Hematocrit 40.3 % (36-48) Mean Corpuscular Volume 88.0 fL (79-99) Mean Corpuscular Hemoglobin 30.3 pg (27.0-33.0) Mean Corpuscular Hemoglobin Concent 34.5 g/dL (32.0-36.0) Red Cell Distribution Width 11.6 % (11.0-15.5) Platelet Count 225 K/uL (130-400) Mean Platelet Volume 10.0 fL (7.5-10.5) Immature Granulocyte % (Auto) 1.0 % (0-1) Neutrophils (%) (Auto) 75.4 % (40.0-77.0) Lymphocytes (%) (Auto) 15.3 % (21.0-51.0) L Monocytes (%) (Auto) 7.0 % (3.0-13.0) Eosinophils (%) (Auto) 0.8 % (0.0-8.0) Basophils (%) (Auto) 0.5 % (0.0-5.0) Neutrophils # (Auto) 6.0 K/uL (1.8-7.7) Lymphocytes # (Auto) 1.2 K/uL (1.0-4.8) Monocytes # (Auto) 0.6 K/uL (0.1-1.0) Eosinophils # (Auto) 0.06 K/uL (0.00-0.70) Basophils # (Auto) 0.04 K/uL (0.00-0.20) Absolute Immature Granulocyte (auto 0.08 K/uL (0-1) Nucleated Red Blood Cells 0.0 % (0.0-0.19) Sodium Level 137 mmol/L (136-145) Potassium Level 3.3 mmol/L (3.5-5.1) L Chloride Level 100 mmol/L (101-111) L Carbon Dioxide Level 30 mmol/L (21-32) Blood Urea Nitrogen 8 mg/dL (7-18) Creatinine 0.7 mg/dL (0.5-1.0) Glomerular Filtration Rate Calc 121 mL/min (>90) Random Glucose 117 mg/dL (70-105) H Total Calcium 9.3 mg/dL (8.5-10.1) Total Bilirubin 0.4 mg/dL (0.2-1.0) Direct Bilirubin 0.1 mg/dL (0.0-0.3) Aspartate Amino Transf (AST/SGOT) 24 U/L (10-37) Alanine Aminotransferase (ALT/SGPT) 52 U/L (12-78) Alkaline Phosphatase 151 U/L (50-136) H Total Protein 7.8 g/dL (6.0-8.3) Albumin 4.0 g/dL (3.5-5.0) Lipase 27 U/L (16-77) Labs Reviewed?: Yes MDM MDM: Differential diagnosis: Influenza, viral illness, pancreatitis, UTI Rationale: 29-year-old female who presents to the emergency department due to abdominal pain onset today. Patient reports she took Tylenol prior to arrival. Reports nausea , cough, congestion but denies any vomiting, diarrhea or further associated symptoms. Patient reports her children are currently sick with influenza, she tested negative. Denies significant past medical history. Surgical history of hysterectomy. Per physical examination patient is in no acute distress, nonlabored breathing, abdomen is soft nontender. Labs obtained indicate no elevated WBC, hepatic function within normal limits, lipase within normal limits, hypokalemia with potassium 3.3, UA negative for urinary tract infection. Patient stated she did not want to be retested for influenza or COVID. Patient received K-Lyte, Zofran, and ketorolac in the ED. patient was educated on findings and diagnosis. Advised to follow up with PCP. Return to the emergency department if any wor sening symptoms. Patient verbalized understanding. Patient stable for discharge. There are no social concerns with this patient. I independently interpreted the test that were performed, results were reviewed by me and considered findings on radiology if ordered. Medical management and examination interpretation discussions were had by me with other qualified healthcare professionals as indicated for the patient's care. ED Course Orders Procedure Category Date Status Time Vital Signs Per CPOE 10/19/24 Transmitted Routine 22:35 Saline Lock Iv CPOE 10/19/24 Transmitted 22:35 Cbc With Differential LAB 10/19/24 Complete 22:35 Lipase LAB 10/19/24 Complete 22:35 Urinalysis Profile LAB 10/19/24 Complete 22:35 Basic Metabolic Panel LAB 10/19/24 Complete 22:35 Hepatic Function Panel LAB 10/19/24 Complete 23:29 Potassium Bicarb/Cit PHA 10/20/24 Complete Ac 25meq (K-Lyte Ta 00:30 Ondansetron Odt 4mg PHA 10/20/24 Complete Tab (Zofran 4mg Odt) 00:30 Ketorolac PHA 10/20/24 Complete Tromethamine 15mg/Ml 00:30 Current Medications Medications (Trade) Dose Ordered Sig/Karen Route PRN Reason Start Time Stop Time Status Last Admin Dose Admin Ketorolac Tromethamine (toRADol) 15 mg ONCE ONCE IM 10/20/24 00:30 10/20/24 00:31 DC 10/20/24 00:29 Ondansetron HCl (zoFRAN 4MG ODT) 4 mg ONCE ONCE SL 10/20/24 00:30 10/20/24 00:31 DC 10/20/24 00:30 Potassium Bicarbonate (K-Lyte Tablet Eff 25 Meq Tablet.eff) 25 meq ONCE ONCE PO 10/20/24 00:30 10/20/24 00:31 DC 10/20/24 00:29 Vital Signs Date Time Temp Pulse Resp B/P (MAP) Pulse Ox O2 Delivery O2 Flow Rate FiO2 10/20/24 00:35 99.0 99 18 115/71 99 Room Air* 0 21 10/19/24 22:30 99.3 103 20 120/75 98 Room Air DX & DISP Disposition: Discharge Departure Impression: Primary Impression: Viral illness Additional Impression: LUQ abdominal pain Condition: Stable Additional Instructions: Discharge home. Rest. Follow up with primary care DrYoli in 24 hours. Return to the ER for any acute changes or worsening symptoms. If any medications were prescribed take as directed. Okay to continue home medications unless otherwise discussed during your visit in the emergency room today. Patient was also advised to follow-up with primary care physician in 1 to 2 days for continued monitoring. Referrals: SELF,REFERRAL (PCP) I performed the substantive portion of the visit. I have reviewed and personally made and approve the management plan that is documented in the notes by myself or the KIM. I acknowledge full responsibility for the patient's management plan. CORNELIUS BANGURA Oct 20, 2024 00:24
[2024-10-20] MEDS: PoTASSium BIcarbonate/CIT AC 25 MEQ TABLET.EFF PO ONE (00:29)
[2024-10-20] MEDS: ketOROlac 15MG/ML VIAL (15MG/ML) IM ONE (00:29)
[2024-10-20] MEDS: ondanSETRON ODT 4MG TAB SL ONE (00:30)
[2024-10-20 00:35] VITALS: BP 115/71; PULSE 99; RESP 18; TEMP 99; O2SAT 99
== END 2024-10-20 00:47 | disposition home or self-care (01) ==
LOC: EDH 22:28
DX: B34.9 Viral infection, unspecified (principal); R10.12 Left upper quadrant pain; Z90.710 Acquired absence of both cervix and uterus
CPT/HCPCS: 99284; 80076; 80048; 83690; 85025; 81003; 36415; 96372; J1885